=== PATIENT | female | born 1990 | race Caucasian/White ===

== ENCOUNTER → 2017-12-05 | Outpatient (CLI) | payer BC ==
[2017-12-05 18:52] LABS: FREE T4 (FREE THYROXINE) 1.28 ng/dL (0.78-2.19)
[2017-12-05 19:06] LABS: THYROID STIMULATING HORMONE 0.27 uIU/mL (0.47-4.68)
== END ==
LOC: OD 16:04
PROVIDERS: ATTEND Psychiatry & Neurology Psychiatry
DX: F33.1 Major depressive disorder, recurrent, moderate (principal); Z79.899 Other long term (current) drug therapy
CPT/HCPCS: 36415; 84439; 84443

== ENCOUNTER → 2019-01-02 | Outpatient (CLI) | payer BC ==
[2019-01-02 20:16] LABS: APPEARANCE,URINE CLEAR; BILIRUBIN,URINE NEGATIVE (NEGATIVE); COLOR,URINE STRAW; GLUCOSE, URINE NEGATIVE (NEGATIVE); KETONES,URINE NEGATIVE (NEGATIVE); LEUKOCYTE ESTERASE,URINE NEGATIVE (NEGATIVE); NITRITE,URINE NEGATIVE (NEGATIVE); PROTEIN,URINE NEGATIVE (NEGATIVE); URINE SPECIFIC GRAVITY 1.003; UROBILINOGEN,URINE NEGATIVE mg/dL (<2.0)
[2019-01-02 20:46] LABS: URINE AMPHETAMINES SCREEN NEGATIVE; URINE BARBITURATES SCREEN NEGATIVE; URINE BENZODIAZEPINES SCREEN NEGATIVE; URINE COCAINE SCREEN NEGATIVE; URINE MARIJUANA (THC) SCREEN NEGATIVE; URINE METHADONE SCREEN NEGATIVE; URINE PHENCYCLIDINE SCREEN NEGATIVE
--- NOTE | 2019-01-02 22:37 | Non Stress Test Report ---
Non Stress Test Datetime Report Generated by CPN: 01/02/2019 22:37 DEMOGRAPHIC EGA NST: 38.3 INDICATION Indication for Study: Other Indication for Study (NST) Other: LC MONITORING Monitor Explained: Monitor Explained; Test Explained; Patient Verbalized Understanding Time on Monitor: 01/02/2019 20:07 Time off Monitor: 01/02/2019 20:51 NST Duration: 44 NST INTERVENTIONS NST Interventions: None Physician Notified NST: Hernandez BABY A: [id number] Movement : Present Contraction Frequency : 1.5-4 FHR Baseline : 130 Accelerations : 15X15 Decelerations : None Variability : Moderate 6-25bpm NST Review: Meets Criteria for Reactive NST NST Review: Meets Criteria for Reactive NST NST Review and Verified By : Citlaly Morrow RN NST Results: Reactive NST REPORT Report Trigger: Send Report
== END ==
LOC: LC 19:34
PROVIDERS: ATTEND Student in an Organized Health Care Education/Training Program
PROC: 4A1HXCZ Monitoring of Products of Conception, Cardiac Rate, External Approach (ICD-10-PCS; principal; 2019-01-02)
DX: O47.1 False labor at or after 37 completed weeks of gestation (principal); Z3A.38 38 weeks gestation of pregnancy
CPT/HCPCS: 80307; 81005; 84112

== ENCOUNTER 2019-01-09 02:20 | Inpatient (IN) | payer BC ==
[2019-01-09] MEDS ORDERED: OXYTOCIN/NORMAL SALINE 20 UNIT/1,000 ML RTUINJ ONE (02:47)
[2019-01-09] MEDS ORDERED: LIDOCAINE 1% INJ-PF (10 MG/ML) 30 ML SDV ONE (02:47)
[2019-01-09] MEDS ORDERED: MISOPROSTOL 0.2 MG TABLET ONE (02:47)
[2019-01-09] MEDS ORDERED: RINGERS SOLUTION,LACTATED 1,000 ML IV PRN ×2 (02:57→10:53)
[2019-01-09 03:36] LABS: ABSOLUTE EOSINOPHILS # (AUTO) 0.1 10^3/uL (0.0-0.6); ABSOLUTE LYMPHOCYTES (AUTO) 2.2 10^3/uL (0.5-4.7); ABSOLUTE NEUT (AUTO) 8.9 10^3/uL (1.7-8.2); BASOPHILS % (AUTO) 0.3 % (0-2); EOSINOPHILS % (AUTO) 1.1 % (0-6); HEMATOCRIT 30.5 % (36.0-47.0); LYMPHOCYTES % (AUTO) 17.7 % (13-45); MEAN CORPUSCULAR HEMOGLOBIN 27.6 pg (27.0-33.4); MEAN CORPUSCULAR HGB CONC 32.9 g/dL (32.0-36.0); MEAN CORPUSCULAR VOLUME 84 fl (80-97); MONOCYTES % (AUTO) 7.9 % (3-13); PLATELET COUNT 178 10^3/uL (150-450); RED BLOOD COUNT 3.63 10^6/uL (3.72-5.28); RED CELL DISTRIBUTION WIDTH 14.5 % (11.5-14.0); TOTAL CELLS COUNTED % (AUTO) 100 %; WHITE BLOOD COUNT 12.2 10^3/uL (4.0-10.5)
[2019-01-09] MEDS ORDERED: EPHEDRINE SULFATE INJ 50 MG/1 ML AMPULE ONE (03:41)
[2019-01-09] MEDS ORDERED: FENTANYL/BUPIVACAINE/NS/PF 300 MCG/150 ML RTUINJ EPI ONE (03:42)
[2019-01-09] MEDS ORDERED: BUPIVACAINE HCL 0.25 % INJ/PF (2.5 MG/1 ML) 30 ML VIAL ONE (03:42)
--- NOTE | 2019-01-09 03:55 | Admission Physical ---
Datetime Report Generated by CPN: 01/09/2019 03:54 CURRENT ADMISSION Chief Complaint: Uterine Contractions Indication for Induction: Not Applicable Admit Impression : Term, Intrauterine ; Active Labor; Intact Membranes Admit Plan: Admit to Unit; Initiate Labor Protocol ALLERGIES Medication Allergies: No Medication Allergies: No Known Allergies (01/09/2019) Latex: No Latex Allergies OBSTETRICAL HISTORY EDC: 01/13/2019 00:00 : 2 Para: 1 Livin Gestational Diabetes: No Rh Sensitization: No Incompetent Cervix: No ISIAH: No Infertility: No ART Treatment: No Uterine Anomaly: No IUGR: No Hx Previous C/S: No Macrosomia: No Hx Loss/Stillborn: No PIH: No Hx : No Placenta Previa/Abruption: No Depression/PP Depression: No PTL/PROM: No Post Hemorrhage: No Current Procedures: Ultrasound; NST Obstetrical History Comments: G1 - 2011 baby boy, no complications G2 - current SEE RECORDS Alcohol: No Marijuana : No Cocaine: No Other Illicit Drugs: No Cigarettes: Never Smoker. [id number] MEDICAL HISTORY Diabetes: No Blood Transfusion: No Pulmonary Disease (Asthma, TB): No Breast Disease: No Hypertension: No Diamond Blender Surgery: No Heart Disease: No Hosp/Surgery: No Autoimmune Disorder: No Anesthetic Complications: No Kidney Disease: No Abnormal Pap Smear: No Neuro/Epilepsy: No Psychiatric Disorders: No Other Medical Diseases: No Hepatitis/Liver Disease: No Significant Family History: No Varicosities/Phlebitis: No Trauma/Violence : No Thyroid Dysfunction: No INFECTIOUS HISTORY Gonorrhea: No Genital Herpes: No Chlamydia: No Tuberculosis: No Syphilis: No Hepatitis: No HIV/AIDS Exposure: No Rash or Viral Illness: No HPV: No PHYSICAL EXAM General: Normal HEENT: Normal Neurologic: Normal Thyroid: Deferred Heart: Normal Lungs: Normal Breast: Deferred Back: Normal Abdomen: Normal Genitourinary Exam: Normal Extremities: Normal DTRs: Normal Pelvic Type: Adequate Vital Signs: Reviewed VAGINAL EXAM Dilatation: 4 Effacement: 80 Station: -1 Contraction Comments: Q2-3 MEMBRANES Membranes: Intact FETUS A EGA: 39.3 Monitoring: External US FHR- Baseline: 145 Variability: Moderate 6-25bpm Accelerations: 15X15 Decelerations: None FHR Category: Category I Presentation: Vertex Admit Comment: 28yo at 39+3ega presents for regular uterine ctx. Rubella NI, transfer at 16wks. She is in active labor. GBS negative. Anticpate . Admit for labor. epidural upon patient request. PLANS FOR LABOR AND DELIVERY Labor and Delivery: None Pain Management: Epidural Feeding Preference: Breast Benefit of Breast Feed Discussed: Yes Circumcision: N/A INFORMED CONSENT Informed Consent Obtained: Vaginal Delivery; Risks, Benefits and Alternatives Discussed Signature: with User ID: [email or web address]
[2019-01-09 05:21] LABS: APPEARANCE,URINE CLEAR; BILIRUBIN,URINE NEGATIVE (NEGATIVE); COLOR,URINE STRAW; GLUCOSE, URINE NEGATIVE (NEGATIVE); KETONES,URINE NEGATIVE (NEGATIVE); LEUKOCYTE ESTERASE,URINE NEGATIVE (NEGATIVE); NITRITE,URINE NEGATIVE (NEGATIVE); PROTEIN,URINE NEGATIVE (NEGATIVE); URINE SPECIFIC GRAVITY 1.008; UROBILINOGEN,URINE NEGATIVE mg/dL (<2.0)
[2019-01-09 05:41] LABS: URINE AMPHETAMINES SCREEN NEGATIVE; URINE BARBITURATES SCREEN NEGATIVE; URINE BENZODIAZEPINES SCREEN NEGATIVE; URINE COCAINE SCREEN NEGATIVE; URINE MARIJUANA (THC) SCREEN NEGATIVE; URINE METHADONE SCREEN NEGATIVE; URINE PHENCYCLIDINE SCREEN NEGATIVE
[2019-01-09] MEDS ORDERED: OXYTOCIN/NORMAL SALINE 20 UNIT/1,000 ML RTUINJ IV PRN ×2 (10:53→13:15)
[2019-01-09] MEDS ORDERED: HYDROXYZINE PAMOATE 50 MG CAPSULE ONE (11:24)
--- NOTE | 2019-01-09 12:34 | RADIOLOGY REPORT (SQ) ---
EXAM DESCRIPTION: CHEST SINGLE VIEW COMPLETED DATE/TIME: 01/09/2019 12:24 pm REASON FOR STUDY: assess for congestion COMPARISON: None. EXAM PARAMETERS: NUMBER OF VIEWS: One view. TECHNIQUE: Single frontal radiographic view of the chest acquired. RADIATION DOSE: NA LIMITATIONS: None. FINDINGS: LUNGS AND PLEURA: No opacities, masses or pneumothorax. No pleural effusion. MEDIASTINUM AND HILAR STRUCTURES: No masses. Contour normal. HEART AND VASCULAR STRUCTURES: Heart normal in size. Normal vasculature. BONES: No acute findings. Mild spinal curvature which may be due to positioning versus underlying sc oliosis. HARDWARE: None in the chest. OTHER: No other significant finding. IMPRESSION: NO ACUTE RADIOGRAPHIC FINDING IN THE CHEST. TECHNICAL DOCUMENTATION: JOB ID: [id number] [employer]- All Rights Reserved Reading location - IP/workstation name: [email or web address]
[2019-01-09 12:46] LABS: ABSOLUTE LYMPHOCYTES (AUTO) 1.2 10^3/uL (0.5-4.7); ABSOLUTE MONOCYTES (AUTO) 0.5 10^3/uL (0.1-1.4); ABSOLUTE NEUT (AUTO) 9.8 10^3/uL (1.7-8.2); BASOPHILS % (AUTO) 0.2 % (0-2); EOSINOPHILS % (AUTO) 0.1 % (0-6); HEMATOCRIT 28.5 % (36.0-47.0); HEMOGLOBIN 9.3 g/dL (12.0-15.5); LYMPHOCYTES % (AUTO) 10.5 % (13-45); MEAN CORPUSCULAR HEMOGLOBIN 27.5 pg (27.0-33.4); MEAN CORPUSCULAR HGB CONC 32.7 g/dL (32.0-36.0); MEAN CORPUSCULAR VOLUME 84 fl (80-97); MONOCYTES % (AUTO) 4.5 % (3-13); PLATELET COUNT 146 10^3/uL (150-450); RED BLOOD COUNT 3.39 10^6/uL (3.72-5.28); SEGMENTED NEUTROPHILS % (AUTO) 84.7 % (42-78); TOTAL CELLS COUNTED % (AUTO) 100 %; WHITE BLOOD COUNT 11.6 10^3/uL (4.0-10.5)
[2019-01-09 13:04] LABS: ALBUMIN 2.9 g/dL (3.5-5.0); ALKALINE PHOSPHATASE 203 U/L (38-126); ANION GAP 8 (5-19); ASPARTATE AMINO TRANSFERASE 25 U/L (14-36); BILIRUBIN,DIRECT 0.1 mg/dL (0.0-0.4); BILIRUBIN,TOTAL 0.3 mg/dL (0.2-1.3); BLOOD UREA NITROGEN 5 mg/dL (7-20); CALCIUM 8.3 mg/dL (8.4-10.2); CARBON DIOXIDE 21 mmol/L (22-30); CHLORIDE 105 mmol/L (98-107); GLUCOSE 86 mg/dL (75-110); TOTAL PROTEIN 5.5 g/dL (6.3-8.2)
[2019-01-09 13:06] LABS: POTASSIUM 3.5 mmol/L (3.6-5.0)
[2019-01-09] MEDS ORDERED: ZOLPIDEM TARTRATE 5 MG TABLET PO PRN (13:15)
[2019-01-09] MEDS ORDERED: DIPH/PERTUSS(ACELL)/TETANUS VAC/PF 0.5 ML SYR (>=10YO) IM PRN (13:15)
[2019-01-09] MEDS ORDERED: ACETAMINOPHEN WITH CODEINE #3 TABLET PO PRN (13:15)
[2019-01-09] MEDS ORDERED: GLYCERIN/WITCH HAZEL LEAF 1 EACH MED..WIPE TP PRN (13:15)
[2019-01-09] MEDS ORDERED: DIBUCAINE 1% OINTMENT 56 GM TP PRN (13:15)
[2019-01-09] MEDS ORDERED: PROMETHAZINE HCL 25 MG TABLET PO PRN (13:15)
[2019-01-09] MEDS ORDERED: MAGNESIUM HYDROXIDE SUSP 30 ML UDCUP PO PRN (13:15)
[2019-01-09] MEDS ORDERED: NA PHOS,M-B/NA PHOS,DI-BA (ADULT) 133 ML ENEMA PR PRN (13:15)
[2019-01-09] MEDS ORDERED: ACETAMINOPHEN 650 MG SUPP.RECT PR PRN (13:15)
[2019-01-09] MEDS ORDERED: MEASLES,MUMPS&RUBELLA VACC/PF 0.5 ML VIAL SUBCUT PRN (13:15)
[2019-01-09] MEDS ORDERED: BENZOCAINE/MENTHOL AEROSOL SPRAY 56 ML TOP PRN (13:15)
[2019-01-09] MEDS ORDERED: PROMETHAZINE HCL 25 MG SUPP.RECT PR PRN (13:15)
[2019-01-09] MEDS ORDERED: DIPHENHYDRAMINE HCL 25 MG CAPSULE PO PRN (13:15)
[2019-01-09] MEDS ORDERED: PROMETHAZINE HCL INJ 25 MG/1 ML VIAL IV PRN (13:15)
[2019-01-09] MEDS ORDERED: PSEUDOEPHEDRINE HCL 30 MG TABLET PO PRN (13:15)
[2019-01-09 14:22] LABS: FREE T3 5.26 pg/mL (2.77-5.27); FREE T4 (FREE THYROXINE) 1.03 ng/dL (0.78-2.19)
--- NOTE | 2019-01-09 15:26 | PDOC CONSULTATION ---
Consultation Consult Date: 01/09/19 Attending physician:: steve Provider Consulted: FERNANDO LABOY History of Present Illness Admission Date/PCP: 01/09/19 02:47 LINDA ANAYA MD Patient complains of: tachycardia History of Present Illness: REUBEN RÍOS is a 28 year old healthy female with no significant past medical history who was admitted and being manage to labor and delivery. Patient was given an epidural earlier today. She reportedly became hypotensive after this hence was given multiple doses of ephedrine. Last dose of ephedrine was given close to 5 AM. She reportedly developed tachycardia. Per RN, she went up to the 140s but went up to as high as 240s. Patient is not on threat monitoring analyst hence no strip was obtained. Cardiac rhythm during the episode is also uncertain. Patient reportedly complained of transient lightheadedness during the episode. Otherwise she denied any chest pain or shortness of breath. Upon encounter, patient's blood pressure is normal at 110/70. Heart rate is 98. EKG pain this morning showed sinus rhythm with a heart rate of 86. She appears comfortable and denies any lightheadedness, chest pain or shortness of breath at the moment. She is currently saturating well at 100% on room air. Social History Smoking Status: Never Smoker Family History Family History: Reviewed & Not Pertinent Parental Family History Reviewed: Yes - no premature CAD Children Family History Reviewed: No Sibling(s) Family History Reviewed.: No Medication/Allergy Home Medications: Fluoxetine HCl [Prozac] 10 mg PO DAILY 01/09/19 Omeprazole 20 mg PO DAILY 01/09/19 Vits96/Iron Fum/Folic [ Tablet] 1 tab PO DAILY 01/09/19 Allergies/Adverse Reactions: No Known Allergies Allergy (Verified 01/09/19 03:39) Review of Systems All systems: reviewed and no additional remarkable complaints except as stated - As mentioned in HPI Physical Exam Vital Signs: Intake & Output 01/08/19 01/09/19 01/10/19 06:59 06:59 06:59 Weight 189 lb 2.506 oz General appearance: PRESENT: no acute distress, well-developed, well-nourished Head exam: PRESENT: atraumatic, normocephalic Eye exam: PRESENT: conjunctiva pink, EOMI, PERRLA. ABSENT: scleral icterus Ear exam: PRESENT: normal external ear exam Mouth exam: PRESENT: moist, tongue midline Neck exam: ABSENT: carotid bruit, JVD, lymphadenopathy, thyromegaly Respiratory exam: PRESENT: clear to auscultation sue. ABSENT: rales, rhonchi, wheezes Cardiovascular exam: PRESENT: RRR. ABSENT: diastolic murmur, rubs, systolic murmur Pulses: PRESENT: normal dorsalis pedis pul GI/Abdominal exam: PRESENT: normal bowel sounds, soft, other - gravid uterus. ABSENT: distended, guarding, mass, organolmegaly, rebound, tenderness Rectal exam: PRESENT: deferred Neurological exam: PRESENT: alert, awake, oriented to person, oriented to place, oriented to time, oriented to situation, CN II-XII grossly intact. ABSENT: motor sensory deficit Results Laboratory Results: 01/09/19 12:21 01/09/19 12:21 01/09/19 01/09/19 01/09/19 02:29 03:08 03:08 WBC 12.2 H RBC 3.63 L Hgb 10.0 L Hct 30.5 L MCV 84 MCH 27.6 MCHC 32.9 RDW 14.5 H Plt Count 178 Seg Neutrophils % 73.0 Lymphocytes % 17.7 Monocytes % 7.9 Eosinophils % 1.1 Basophils % 0.3 Absolute Neutrophils 8.9 H Absolute Lymphocytes 2.2 Absolute Monocytes 1.0 Absolute Eosinophils 0.1 Absolute Basophils 0.0 Sodium Potassium Chloride Carbon Dioxide Anion Gap BUN Creatinine Est GFR ( Amer) Est GFR (Non-Af Amer) Glucose Calcium Total Bilirubin AST Alkaline Phosphatase Total Protein Albumin Urine Color STRAW Urine Appearance CLEAR Urine pH 7.0 Ur Specific [place] 1.008 Urine Protein NEGATIVE Urine Glucose (UA) NEGATIVE Urine Ketones NEGATIVE Urine Blood NEGATIVE Urine Nitrite NEGATIVE Ur Leukocyte Esterase NEGATIVE Blood Type A POSITIVE Antibody Screen NEGATIVE 01/09/19 01/09/19 12:21 12:21 WBC 11.6 H RBC 3.39 L Hgb 9.3 L Hct 28.5 L MCV 84 MCH 27.5 MCHC 32.7 RDW 15.0 H Plt Count 146 L Seg Neutrophils % 84.7 H Lymphocytes % 10.5 L Monocytes % 4.5 Eosinophils % 0.1 Basophils % 0.2 Absolute Neutrophils 9.8 H Absolute Lymphocytes 1.2 Absolute Monocytes 0.5 Absolute Eosinophils 0.0 Absolute Basophils 0.0 Sodium 134.2 L Potassium 3.5 L Chloride 105 Carbon Dioxide 21 L Anion Gap 8 BUN 5 L Creatinine 0.46 L Est GFR ( Amer) > 60 Est GFR (Non-Af Amer) > 60 Glucose 86 Calcium 8.3 L Total Bilirubin 0.3 AST 25 Alkaline Phosphatase 203 H Total Protein 5.5 L Albumin 2.9 L Urine Color Urine Appearance Urine pH Ur Specific [place] Urine Protein Urine Glucose (UA) Urine Ketones Urine Blood Urine Nitrite Ur Leukocyte Esterase Blood Type Antibody Screen Impressions: Chest X-Ray 01/09/19 11:54 IMPRESSION: NO ACUTE RADIOGRAPHIC FINDING IN THE CHEST. Assessment and Plan - Diagnosis (1) Tachycardia Is this a current diagnosis for this admission?: Yes Plan: Possibly related to ephedrine. Patient likely developed hypotension after epidural anesthesia. She did get multiple doses of ephedrine after that. Cardiac reason during the episode is uncertain. Will place patient on monitor car operator. Will check electrolytes particularly potassium and magnesium. Will also check patient's thyroid panel. She denies shortness of breath and she is saturating well on room air. Will consider pursuing a VQ scan if she has recurrence of persistence of tachycardia. (2) Hypotension Is this a current diagnosis for this admission?: Yes Plan: Resolved. Likely related to epidural anesthesia. (3) Active labor at term Is this a current diagnosis for this admission?: Yes Plan: Currently being managed by primary service. - Time Time Spent with patient: 25-34 minutes
[2019-01-09] MEDS: POTASSI CL 20 MEQ/50 ML RIDER 20 MEQ/50 ML RTUPB IV SCH ×2 (16:52→19:42)
[2019-01-09] MEDS: MAGNESIUM SULFATE/D5W 1 GM/100 ML RTUPB IV SCH ×2 (16:52→18:17)
[2019-01-09] MEDS: ACETAMINOPHEN WITH CODEINE #3 TABLET PO PRN (16:52)
[2019-01-09] MEDS: IBUPROFEN 800 MG TABLET PO SCH ×2 (17:01→22:04)
[2019-01-09] MEDS: FERROUS SULFATE 325 MG TABLET PO SCH (18:17)
[2019-01-09] MEDS: DOCUSATE SODIUM 100 MG CAPSULE PO SCH (18:17)
[2019-01-09 20:40] LABS: POTASSIUM 4.2 mmol/L (3.6-5.0)
[2019-01-09] MEDS: FAMOTIDINE 20 MG TABLET PO SCH (22:04)
[2019-01-10] MEDS: IBUPROFEN 800 MG TABLET PO SCH ×3 (05:30→21:44)
[2019-01-10 06:42] LABS: HEMOGLOBIN 8.2 g/dL (12.0-15.5); MEAN CORPUSCULAR HEMOGLOBIN 27.7 pg (27.0-33.4); MEAN CORPUSCULAR HGB CONC 32.8 g/dL (32.0-36.0); MEAN CORPUSCULAR VOLUME 84 fl (80-97); PLATELET COUNT 123 10^3/uL (150-450); RED BLOOD COUNT 2.96 10^6/uL (3.72-5.28); RED CELL DISTRIBUTION WIDTH 14.8 % (11.5-14.0); WHITE BLOOD COUNT 13.6 10^3/uL (4.0-10.5)
[2019-01-10] MEDS: PRENATAL VITAMIN W DHA CAPSULE PO SCH (09:29)
[2019-01-10] MEDS: SENNOSIDES/DOCUSATE 8.6-50 MG 1 EACH TABLET PO SCH (09:29)
[2019-01-10] MEDS: FAMOTIDINE 20 MG TABLET PO SCH ×2 (09:29→21:45)
[2019-01-10] MEDS: DOCUSATE SODIUM 100 MG CAPSULE PO SCH ×2 (09:29→17:49)
[2019-01-10] MEDS: FERROUS SULFATE 325 MG TABLET PO SCH ×2 (09:29→17:49)
--- NOTE | 2019-01-10 10:05 | PDOC PROGRESS REPORT ---
Subjective-OB Progress Note for:: 01/10/19 - PP Day #1, s/p PPH, also had issues w/ being Hypotensive after her epidural yesterday. See note by Hospitalist. Pt doing well this morning, no c/o dizziness, denies problems w/ ambulation or voiding, A+, rubella non-immune Physical Exam (OB) Vital Signs: Temp Pulse Resp BP Pulse Ox 97.5 F 65 16 122/71 100 01/10/19 07:26 01/10/19 07:26 01/10/19 07:26 01/10/19 07:26 01/10/19 07:26 Intake & Output 01/09/19 01/10/19 01/11/19 06:59 06:59 06:59 Intake Total 150 Balance 150 Weight 85.8 kg - General General Appearance: Appears well, Alert - PIH/Pre-Eclampsia DTR's: 2 + Clonus: Negative Headache: Absent Epigastric Pain: No Visual Changes: No - Lochia Lochia Amount: Small 10-25 ml Lochia Color: Rubra/Red - Abdomen Description: Soft Hernia Present: No Fundal Description: Firm, Midline Describe if Not Midline: slightly to the right Fundal Height: u/u - u/2 - Respiratory Respiratory Status: No respiratory distress - Abdominal Inspection: Normal Distension: No distension - Genitourinary Genitourinary Note: voiding - Extremities Upper extremity: Normal inspection Lower extremities: Normal inspection - Neurological Cognition: Normal Orientation: AAOx4 - Psychological Associated symptoms: Normal affect, Normal mood - Skin Skin Temperature: Warm Skin Moisture: Dry Objective-Diagnostic Laboratory: 01/10/19 06:22 01/09/19 20:16 01/09/19 01/09/19 01/09/19 11:21 12:21 12:21 WBC 11.6 H RBC 3.39 L Hgb 9.3 L Hct 28.5 L MCV 84 MCH 27.5 MCHC 32.7 RDW 15.0 H Plt Count 146 L Seg Neutrophils % 84.7 H Lymphocytes % 10.5 L Monocytes % 4.5 Eosinophils % 0.1 Basophils % 0.2 Absolute Neutrophils 9.8 H Absolute Lymphocytes 1.2 Absolute Monocytes 0.5 Absolute Eosinophils 0.0 Absolute Basophils 0.0 Sodium 134.2 L Potassium 3.5 L Chloride 105 Carbon Dioxide 21 L Anion Gap 8 BUN 5 L Creatinine 0.46 L Est GFR ( Amer) > 60 Est GFR (Non-Af Amer) > 60 Glucose 86 Calcium 8.3 L Magnesium Total Bilirubin 0.3 AST 25 Alkaline Phosphatase 203 H Total Protein 5.5 L Albumin 2.9 L TSH Free T4 1.03 Free T3 pg/mL 5.26 01/09/19 01/09/19 01/09/19 12:21 12:21 20:16 WBC RBC Hgb Hct MCV MCH MCHC RDW Plt Count Seg Neutrophils % Lymphocytes % Monocytes % Eosinophils % Basophils % Absolute Neutrophils Absolute Lymphocytes Absolute Monocytes Absolute Eosinophils Absolute Basophils Sodium Potassium 4.2 Chloride Carbon Dioxide Anion Gap BUN Creatinine Est GFR ( Amer) Est GFR (Non-Af Amer) Glucose Calcium Magnesium 1.4 L 2.0 Total Bilirubin AST Alkaline Phosphatase Total Protein Albumin TSH 1.07 Free T4 Free T3 pg/mL 01/10/19 06:22 WBC 13.6 H RBC 2.96 L Hgb 8.2 L Hct 25.0 L MCV 84 MCH 27.7 MCHC 32.8 RDW 14.8 H Plt Count 123 L Seg Neutrophils % Lymphocytes % Monocytes % Eosinophils % Basophils % Absolute Neutrophils Absolute Lymphocytes Absolute Monocytes Absolute Eosinophils Absolute Basophils Sodium Potassium Chloride Carbon Dioxide Anion Gap BUN Creatinine Est GFR ( Amer) Est GFR (Non-Af Amer) Glucose Calcium Magnesium Total Bilirubin AST Alkaline Phosphatase Total Protein Albumin TSH Free T4 Free T3 pg/mL Assessment and Plan(PN) - Assessment and Plan (1) PPH ( hemorrhage) Qualifiers: hemorrhage type: other immediate Qualified Code(s): O72.1 - Other immediate hemorrhage Is this a current diagnosis for this admission?: Yes (2) Acute blood loss anemia Is this a current diagnosis for this admission?: Yes (3) Active labor at term Is this a current diagnosis for this admission?: Yes (4) Hypotension Qualifiers: Hypotension type: hypotension due to drug Qualified Code(s): I95.2 - Hypotension due to drugs Is this a current diagnosis for this admission?: Yes (5) Tachycardia Is this a current diagnosis for this admission?: Yes - Time Spent with Patient Time with patient: Less than 15 minutes Medications reviewed and adjusted accordingly: Yes - Disposition Anticipated Discharge: Home Within: within 24 hours
[2019-01-10] MEDS: ACETAMINOPHEN WITH CODEINE #3 TABLET PO PRN (14:04)
--- NOTE | 2019-01-10 15:08 | Delivery Summary ---
Del Sum A-C Datetime Report Generated by CPN: 01/10/2019 15:07 DELIVERY PERSONNEL DELIVERY PERSONNEL: [id number] Delivery Doctor:: Renay Ambriz CNM Nurse Chief Sales Officer Certified:: Renay Ambriz CNM Labor and Delivery Nurse:: JAMAR Martinez Nursery Nurse:: Alexandra Velez RN Accounts Receivable Manager/DISTANCE EDUCATION DIRECTOR: Kellie Guzmán, SUPERVISOR KNITTING Additional Personnel: : Kayce Coon RN MATERNAL INFORMATION Delivery Anesthesia: Epidural Medications After Delivery: Pitocin Drip 20 Units/1000ml NSS; Cytotec 800mcg Per Rectum/Vagina Estimated Blood Loss (ml): 300 Delivery QBL: 1000 Other Maternal Complications: Episodic maternal tachycardia Complication Details: Maternal Tachycardia Provider Comments: live female in vertex OA to PEEWEE at 1243 under epidural anesthesia. Light meconium fluid. Loose nuchal cord x1 reduced. Spontaneous respirations and cry. 3-vessel cord. Apgars 8-8. Cord clamped x2, after 2 min delay, then cut by female friend of patient. Placenta, membranes, and cord expelled at 1249, [place], w trailing membranes. Small perineal laceration w hemostasis, no repair. Patient's pulse 114 after delivery. Uterus explored. FF@ U-3. Patient tolerated procedure well. RN from [facility] present to place leads for telimetry. LABOR SUMMARY EDC: 01/13/2019 00:00 No. Babies in Womb: 1 Attempted: No Labor Anesthesia: Epidural LABOR INFORMATION Reason for Induction: Not Applicable Onset of Labor: 01/08/2019 21:30 Complete Dilatation: 01/09/2019 12:30 Oxytocin: Augmentation Group B Beta Strep: negative Steroids Given: None Reason Steroids Not Administered: Not Applicable MEMBRANES Membranes Rupture Method: Artificial Rupture of Membranes: 01/09/2019 08:40 Length of Rupture (hr): 4.05 Amniotic Fluid Color: Light Meconium Amniotic Fluid Amount: Moderate Amniotic Fluid Amount: None Amniotic Fluid Odor: Normal STAGES OF LABOR Stage 1 hr: 15 Stage 1 min: 0 Stage 2 hr: 0 Stage 2 min: 13 Stage 3 hr: 0 Stage 3 min: 6 Total Time in Labor hr: 15 Total Time in Labor min: 19 VAGINAL DELIVERY Laceration #1: Perineal Laceration Extension #1: N/A Laceration Repair: Not Applicable Laceration Repair Note: Hemostasis w small perineal laceration Sponge Count Correct: N/A Sharps Count Correct: Yes BABY A INFORMATION Delivery Date/Time: 01/09/2019 12:43 Method of Delivery: Vaginal Born in Route : No : N/A Forceps: N/A Vacuum Extraction: N/A Shoulder Dystocia : No PRESENTATION/POSITION BABY A Presentation: Cephalic Presentation: Cephalic PLACENTA INFORMATION BABY A Placenta Delivery Time : 01/09/2019 12:49 Placenta Method of Delivery: Spontaneous Placenta Status: Delivered SCORES BABY A Heart Rate 1 min: >100 bpm Resp Effort 1 min: Good Cry Reflex Irritability 1 min: Cough or Sneeze or Pulls Away Muscle Tone 1 min: Active Motion Color 1 min: Blue/Pale SCORE 1 MIN: 8 Heart Rate 5 min: >100 bpm Resp Effort 5 min: Good Cry Reflex Irritability 5 min: Cough or Sneeze or Pulls Away Muscle Tone 5 min: Active Motion Color 5 min: Blue/Pale SCORE 5 MIN: 8 Heart Rate 10 min: >100 bpm Resp Effort 10 min: Good Cry Reflex Irritability 10 min: Cough or Sneeze or Pulls Away Muscle Tone 10 min: Active Motion Color 10 min: Body [place], Extremities Blue SCORE 10 MIN: 9 INFANT INFORMATION BABY A Gestational Age at Delivery: 39.0 Gestational Status: Full Term- 39- 40.6 Weeks Outcome : Liveborn Condition : Stable Infant Sex: Female IDENTIFICATION BABY A Verification Date/Time: 01/09/2019 13:00 ID Band Number: [id number] Mother's Name Verified: Yes Infant RN Verifying Infant: Aleksandray Additional Verifying Personnel: [email or web address] WEIGHT/LENGTH BABY A Infant Birthweight (gm): 3359 Infant Weight (lb): 7 Weight (oz): 6 Length (in): 19.75 Infant Length (cm): 50.17 CORD INFORMATION BABY A No. Cord Vessels: 3 Nuchal Cord : Around Neck x1, Loose Cord Blood Taken: Yes-For Storage (Mom's Blood type +) Suction: Mouth; Nose ASSESSMENT BABY A Complications: Meconium Complications- Other: thin mec Physical Findings at Delivery: Within Normal Limits Infant Respirations: Appears Normal Skin to Skin: Yes Skin to Skin: Yes Cleaner Wall/ALS Called : No Infant Care By: La Velez RN Transferred To: Remains with Mother SIGNATURES Assignment: Angel Prince MD Signature: with User ID: Inder : with User ID: Inder : I personally evaluated and examined the patient in conjunction with the MLP and agree with the assessment, treatment plan and disposition. : I personally evaluated and examined the patient in conjunction with the MLP and agree with the assessment, treatment plan and disposition.
--- NOTE | 2019-01-10 17:05 | PDOC PROGRESS REPORT ---
Subjective Progress Note for:: 01/10/19 Subjective:: No acute event overnight. No recurrence of tachycardia. She is comfortable and is saturating well on room air. She has ambulated the hallways with no acute issues or desaturation. Denies shortness of breath or chest pain. Reason For Visit: Physical Exam Vital Signs: Temp Pulse Resp BP Pulse Ox 97.9 F 71 18 113/70 98 01/10/19 15:04 01/10/19 15:04 01/10/19 15:04 01/10/19 15:04 01/10/19 15:04 Intake & Output 01/09/19 01/10/19 01/11/19 06:59 06:59 06:59 Intake Total 150 300 Balance 150 300 Weight 189 lb 2.506 oz General appearance: PRESENT: no acute distress, well-developed, well-nourished Head exam: PRESENT: atraumatic, normocephalic Eye exam: PRESENT: conjunctiva pink, EOMI, PERRLA. ABSENT: scleral icterus Ear exam: PRESENT: normal external ear exam Mouth exam: PRESENT: moist, tongue midline Neck exam: ABSENT: carotid bruit, JVD, lymphadenopathy, thyromegaly Respiratory exam: PRESENT: clear to auscultation sue. ABSENT: rales, rhonchi, wheezes Cardiovascular exam: PRESENT: RRR. ABSENT: diastolic murmur, rubs, systolic murmur Pulses: PRESENT: normal dorsalis pedis pul GI/Abdominal exam: PRESENT: normal bowel sounds, soft. ABSENT: distended, guard ing, mass, organolmegaly, rebound, tenderness Rectal exam: PRESENT: deferred Extremities exam: PRESENT: full ROM. ABSENT: calf tenderness, clubbing, pedal edema Neurological exam: PRESENT: alert, awake, oriented to person, oriented to place, oriented to time, oriented to situation, CN II-XII grossly intact. ABSENT: motor sensory deficit Results Laboratory Results: 01/10/19 06:22 01/09/19 20:16 01/09/19 01/10/19 20:16 06:22 WBC 13.6 H RBC 2.96 L Hgb 8.2 L Hct 25.0 L MCV 84 MCH 27.7 MCHC 32.8 RDW 14.8 H Plt Count 123 L Potassium 4.2 Magnesium 2.0 Impressions: Chest X-Ray 01/09/19 11:54 IMPRESSION: NO ACUTE RADIOGRAPHIC FINDING IN THE CHEST. Assessment and Plan - Diagnosis (1) Tachycardia Is this a current diagnosis for this admission?: Yes Plan: Resolved. Likely medication-related with both hypomagnesemia and hypokalemia possibly contributory to risk of tachyarrthymia. No recurrence of tachycardia overnight. (2) Hypotension Qualifiers: Hypotension type: hypotension due to drug Qualified Code(s): I95.2 - Hypotension due to drugs Is this a current diagnosis for this admission?: Yes Plan: Resolved. Likely related to epidural anesthesia. (3) Hypokalemia Is this a current diagnosis for this admission?: Yes Plan: Repleted. (4) Hypomagnesemia Is this a current diagnosis for this admission?: Yes Plan: Repleted. - Time Time Spent with patient: 25-34 minutes
[2019-01-11] MEDS: IBUPROFEN 800 MG TABLET PO SCH (06:01)
[2019-01-11] MEDS: FERROUS SULFATE 325 MG TABLET PO SCH (10:23)
[2019-01-11] MEDS: PRENATAL VITAMIN W DHA CAPSULE PO SCH (10:23)
[2019-01-11] MEDS: DOCUSATE SODIUM 100 MG CAPSULE PO SCH (10:24)
[2019-01-11] MEDS: FAMOTIDINE 20 MG TABLET PO SCH (10:24)
[2019-01-11] MEDS: SENNOSIDES/DOCUSATE 8.6-50 MG 1 EACH TABLET PO SCH (10:25)
--- NOTE | 2019-01-11 10:30 | EKG REPORT ---
SEVERITY:- NORMAL ECG - SINUS RHYTHM : Confirmed by: Ammy Freedman 11-Jan-2019 10:29:27
--- NOTE | 2019-01-11 10:37 | PDOC DISCHARGE SUMMARY ---
Final Diagnosis Discharge Date: 01/11/19 - PP Day #2, doing well, no compaints, , A+ Rubella Non-immune, PPH this delivery - Final Diagnosis (1) PPH ( hemorrhage) Is this a current diagnosis for this admission?: Yes (2) Acute blood loss anemia Is this a current diagnosis for this admission?: Yes (3) Active labor at term Is this a current diagnosis for this admission?: Yes (4) Hypotension Is this a current diagnosis for this admission?: Yes (5) Tachycardia Is this a current diagnosis for this admission?: Yes Discharge Data - Discharge Medication Prescriptions: Ferrous Sulfate [Feosol 325 mg Tablet] 325 mg PO DAILY #30 tablet Ibuprofen [Motrin 800 mg Tablet] 800 mg PO Q8 #60 tablet Home Medications: Fluoxetine HCl [Prozac] 10 mg PO DAILY 01/09/19 Omeprazole 20 mg PO DAILY 01/09/19 Vits96/Iron Fum/Folic [ Tablet] 1 tab PO DAILY 01/09/19 Ferrous Sulfate [Feosol 325 mg Tablet] 325 mg PO DAILY #30 tablet 01/11/19 Ibuprofen [Motrin 800 mg Tablet] 800 mg PO Q8 #60 tablet 01/11/19 Reason(s) for Admission: Onset of Labor Intrapartum Procedure(s): Spontaneous Vaginal Delivery Complication(s): Hemorrhage-Uterine Atony - Diagnosis Test Laboratory: Temp Pulse Resp BP Pulse Ox 97.6 F 79 18 114/71 99 01/11/19 07:57 01/11/19 07:57 01/11/19 07:57 01/11/19 07:57 01/11/19 07:57 01/09/19 01/09/19 01/09/19 02:29 03:08 12:21 RBC 3.63 L 3.39 L Hgb 10.0 L 9.3 L Hct 30.5 L 28.5 L Urine Opiates Screen NEGATIVE 01/10/19 06:22 RBC 2.96 L Hgb 8.2 L Hct 25.0 L Urine Opiates Screen - Discharge information/Instructions Discharge Activity: Activity As Tolerated, No Lifting Over 10 Pounds, Pelvic Rest Discharge Diet: As Tolerated Disposition: HOME, SELF-CARE Follow up with: [facility] in: 4, Weeks
[2019-01-11] MEDS: ACETAMINOPHEN WITH CODEINE #3 TABLET PO PRN (12:00)
[2019-01-11 13:29] VITALS: BP 114/71
== END 2019-01-11 14:40 | disposition home or self-care (01) | DRG 806 ==
LOC: LC 02:20 → LR 02:47 → 2S 15:50
PROVIDERS: ADMIT Student in an Organized Health Care Education/Training Program; ATTEND Student in an Organized Health Care Education/Training Program
PROC: 10E0XZZ Delivery of Products of Conception, External Approach (ICD-10-PCS; principal; 2019-01-09)
PROC: 10907ZC Drainage of Amniotic Fluid, Therapeutic from Products of Conception, Via Natural or Artificial Opening (ICD-10-PCS; 2019-01-09)
DX: O72.1 Other immediate postpartum hemorrhage (principal); D62 Acute posthemorrhagic anemia; Z37.0 Single live birth; O69.81X0 Labor and delivery complicated by cord around neck, without compression, not applicable or unspecified; I95.2 Hypotension due to drugs; T41.3X5A Adverse effect of local anesthetics, initial encounter; O90.81 Anemia of the puerperium; E83.42 Hypomagnesemia; E87.6 Hypokalemia; Z3A.39 39 weeks gestation of pregnancy
CPT/HCPCS: 36415; 71045; 80053; 80307; 81005; 83735; 84132; 84439; 84443; 84481; 85025; 85027; 86592; 86850; 86900; 86901; 88307; 93005; 93010; 94760; J2590; J3010; J3475; J3480; J3490

== ENCOUNTER 2019-01-12 19:24 | Emergency (ER) | payer BC, MEDICAID ==
[2019-01-12] MEDS ORDERED: NORMAL SALINE 1000 ML 1,000 ML IV ONE (21:07)
[2019-01-12] MEDS ORDERED: ACETAMINOPHEN 325 MG TABLET PO ONE (21:17)
[2019-01-12 21:23] LABS: ALBUMIN 3.7 g/dL (3.5-5.0); ALKALINE PHOSPHATASE 171 U/L (38-126); ANION GAP 10 (5-19); ASPARTATE AMINO TRANSFERASE 41 U/L (14-36); BILIRUBIN,DIRECT 0.2 mg/dL (0.0-0.4); BILIRUBIN,TOTAL 0.4 mg/dL (0.2-1.3); BLOOD UREA NITROGEN 8 mg/dL (7-20); CALCIUM 9.2 mg/dL (8.4-10.2); CARBON DIOXIDE 25 mmol/L (22-30); CHLORIDE 99 mmol/L (98-107); GLUCOSE 99 mg/dL (75-110); POTASSIUM 3.7 mmol/L (3.6-5.0); TOTAL PROTEIN 7.2 g/dL (6.3-8.2)
[2019-01-12 21:27] LABS: ABSOLUTE EOSINOPHILS # (AUTO) 0.2 10^3/uL (0.0-0.6); ABSOLUTE LYMPHOCYTES (AUTO) 0.8 10^3/uL (0.5-4.7); ABSOLUTE MONOCYTES (AUTO) 0.6 10^3/uL (0.1-1.4); ABSOLUTE NEUT (AUTO) 10.8 10^3/uL (1.7-8.2); BASOPHILS % (AUTO) 0.4 % (0-2); EOSINOPHILS % (AUTO) 1.4 % (0-6); HEMATOCRIT 29.8 % (36.0-47.0); HEMOGLOBIN 9.7 g/dL (12.0-15.5); LYMPHOCYTES % (AUTO) 6.3 % (13-45); MEAN CORPUSCULAR HEMOGLOBIN 27.8 pg (27.0-33.4); MEAN CORPUSCULAR HGB CONC 32.7 g/dL (32.0-36.0); MEAN CORPUSCULAR VOLUME 85 fl (80-97); MONOCYTES % (AUTO) 4.7 % (3-13); PLATELET COUNT 242 10^3/uL (150-450); RED BLOOD COUNT 3.51 10^6/uL (3.72-5.28); RED CELL DISTRIBUTION WIDTH 15.2 % (11.5-14.0); SEGMENTED NEUTROPHILS % (AUTO) 87.2 % (42-78); TOTAL CELLS COUNTED % (AUTO) 100 %; WHITE BLOOD COUNT 12.4 10^3/uL (4.0-10.5)
[2019-01-12 21:38] LABS: APPEARANCE,URINE CLOUDY; BILIRUBIN,URINE NEGATIVE (NEGATIVE); COLOR,URINE YELLOW; GLUCOSE, URINE NEGATIVE (NEGATIVE); KETONES,URINE NEGATIVE (NEGATIVE); LEUKOCYTE ESTERASE,URINE LARGE (NEGATIVE); NITRITE,URINE NEGATIVE (NEGATIVE); PROTEIN,URINE 30 mg/dL (NEGATIVE); UROBILINOGEN,URINE NEGATIVE mg/dL (<2.0)
--- NOTE | 2019-01-12 22:09 | ER Document Report ---
ED General - General Chief Complaint: Post Problem Stated Complaint: SORENESS,FEVER Time Seen by Provider: 01/12/19 20:54 Primary Care Provider: [facility] [Provider Group] - Follow up in 3-5 days LI PENN PA-C [Primary Care Provider] - Follow up as needed Mode of Arrival: Ambulatory Information source: Patient Notes: This 28-year-old female presents emergency department with feeling achy fever that started this morning. Recent vaginal of a little girl here at [facility] by victim witness administrator Renay flores January 09. Denies vomiting diarrhea. Patient reports she is breast-feeding. Reports breasts feel full but denies erythema. Patient reports urinary frequency increased since delivery. TRAVEL OUTSIDE OF THE [place] IN LAST 30 DAYS: No - HPI Onset: This morning Onset/Duration: Persistent Quality of pain: Achy Associated symptoms: Fever Exacerbated by: Denies Relieved by: Denies Similar symptoms previously: No Recently seen / treated by doctor: No - Related Data Allergies/Adverse Reactions: No Known Allergies Allergy (Verified 01/09/19 03:39) Past Medical History - General Information source: Patient Last Menstrual Period: - Social History Smoking Status: Unknown if Ever Smoked Cigarette use (# per day): No Frequency of alcohol use: None Drug Abuse: None Lives with: Family Family History: Reviewed & Not Pertinent Patient has suicidal ideation: No Patient has homicidal ideation: No Pulmonary Medical History: Reports: Hx Asthma Renal/ Medical History: Denies: Hx Peritoneal Dialysis Surgical Hx: Negative - Immunizations Hx Diphtheria, Pertussis, Tetanus Vaccination: Yes - 01/27/2012 Review of Systems - Review of Systems Notes: Review HPI for review of systems., All other systems negative Physical Exam - Vital signs Vitals: Temp Pulse Resp BP Pulse Ox 100.1 F 105 H 15 140/74 H 100 01/12/19 19:28 01/12/19 19:28 01/12/19 19:28 01/12/19 19:28 01/12/19 19:28 - Notes Notes: PHYSICAL EXAMINATION: GENERAL: Well-appearing and in no acute distress HEAD: Atraumatic, normocephalic. EYES: Pupils equal round , extraocular movements intact, sclera anicteric, conjunctiva are normal. ENT: nares patent, oropharynx clear without exudates. Moist mucous membranes. NECK: Normal range of motion, supple without lymphadenopathy LUNGS: CTAB and equal. No wheezes rales or rhonchi. HEART: Regular rate and rhythm without murmurs ABDOMEN: Soft, no tenderness. No guarding, no rebound EXTREMITIES: Normal range of motion, no pitting edema. No cyanosis. NEUROLOGICAL: Cranial nerves grossly intact. Normal sensory/motor exams. PSYCH: Normal mood, normal affect. SKIN: Warm, Dry, normal turgor, no rashes or lesions noted - Respiratory Respiratory status: No respiratory distress Chest status: Nontender Breath sounds: Normal Chest palpation: Normal - Skin Skin Temperature: Warm Skin Moisture: Dry Skin Color: Normal Skin irregularity: negative: Erythema Course - Re-evaluation Re-evalutation: 01/12/19 28-year-old female that presents with feeling achy fever that started this morning. Recent vaginal January 09. leukocytosis 12.4 with small shift. Leukocytes noted in urine. With large number of WBCs. Dr. Aguila Angeles [employer]IST contacted. Reviewed patient history reviewed results. Patient will be treated for UTI with iv fluids, gram Rocephin sent home with prescription of Keflex and instructed to follow-up [facility] for an appointment this week. Patient was instructed on the importance of monitor temperature push fluids take Tylenol as indicated. Dictation of this chart was performed using voice recognition software; therefore, there may be some unintended grammatical errors. 01/12/19 20:55 01/12/19 20:55 MCV 85 fl (80-97) 01/12/19 20:55 MCH 27.8 pg (27.0-33.4) 01/12/19 20:55 MCHC 32.7 g/dL (32.0-36.0) 01/12/19 20:55 RDW 15.2 % (11.5-14.0) H 01/12/19 20:55 Seg Neutrophils % 87.2 % (42-78) H 01/12/19 20:55 Lymphocytes % 6.3 % (13-45) L 01/12/19 20:55 Monocytes % 4.7 % (3-13) 01/12/19 20:55 Eosinophils % 1.4 % (0-6) 01/12/19 20:55 Basophils % 0.4 % (0-2) 01/12/19 20:55 Absolute Neutrophils 10.8 10^3/uL (1.7-8.2) H 01/12/19 20:55 Absolute Lymphocytes 0.8 10^3/uL (0.5-4.7) 01/12/19 20:55 Absolute Monocytes 0.6 10^3/uL (0.1-1.4) 01/12/19 20:55 Absolute Eosinophils 0.2 10^3/uL (0.0-0.6) 01/12/19 20:55 Absolute Basophils 0.0 10^3/uL (0.0-0.2) 01/12/19 20:55 Chloride 99 mmol/L (98-107) 01/12/19 20:55 Carbon Dioxide 25 mmol/L (22-30) 01/12/19 20:55 Anion Gap 10 (5-19) 01/12/19 20:55 Est GFR ( Amer) > 60 (>60) 01/12/19 20:55 Est GFR (Non-Af Amer) > 60 (>60) 01/12/19 20:55 Glucose 99 mg/dL (75-110) 01/12/19 20:55 Lactic Acid 1.2 mmol/L (0.7-2.1) 01/12/19 20:55 Calcium 9.2 mg/dL (8.4-10.2) 01/12/19 20:55 Total Bilirubin 0.4 mg/dL (0.2-1.3) 01/12/19 20:55 AST 41 U/L (14-36) H 01/12/19 20:55 Alkaline Phosphatase 171 U/L (38-126) H 01/12/19 20:55 Total Protein 7.2 g/dL (6.3-8.2) 01/12/19 20:55 Albumin 3.7 g/dL (3.5-5.0) 01/12/19 20:55 Urine Color YELLOW 01/12/19 20:15 Urine Appearance CLOUDY 01/12/19 20:15 Urine pH 9.0 (5.0-9.0) 01/12/19 20:15 Ur Specific [place] 1.010 01/12/19 20:15 Urine Protein 30 mg/dL (NEGATIVE) H 01/12/19 20:15 Urine Glucose (UA) NEGATIVE mg/dL (NEGATIVE) 01/12/19 20:15 Urine Ketones NEGATIVE mg/dL (NEGATIVE) 01/12/19 20:15 Urine Blood LARGE (NEGATIVE) H 01/12/19 20:15 Urine Nitrite NEGATIVE (NEGATIVE) 01/12/19 20:15 Ur Leukocyte Esterase LARGE (NEGATIVE) H 01/12/19 20:15 Urine WBC (Auto) >182 /HPF 01/12/19 20:15 Urine RBC (Auto) >182 /HPF 01/12/19 20:15 - Vital Signs Vital signs: Temp Pulse Resp BP Pulse Ox 100.2 F 105 H 23 H 109/68 100 01/12/19 22:39 01/12/19 19:28 01/12/19 23:01 01/12/19 23:01 01/12/19 23:01 - Laboratory Result Diagrams: 01/12/19 20:55 01/12/19 20:55 Laboratory results interpreted by me: 01/12/19 01/12/19 01/12/19 20:15 20:55 20:55 WBC 12.4 H RBC 3.51 L Hgb 9.7 L Hct 29.8 L RDW 15.2 H Seg Neutrophils % 87.2 H Lymphocytes % 6.3 L Absolute Neutrophils 10.8 H Sodium 133.5 L AST 41 H Alkaline Phosphatase 171 H Urine Protein 30 H Urine Blood LARGE H Ur Leukocyte Esterase LARGE H - Consults dr keith angeles Reason for consultation: 01/12/19 22:27 UTI, Antibiotics, fu Consulted provider: follow-up in office Discharge - Discharge Clinical Impression: Fever Qualifiers: Fever type: unspecified Qualified Code(s): R50.9 - Fever, unspecified UTI (urinary tract infection) Qualifiers: Urinary tract infection type: site unspecified Hematuria presence: with hematuria Qualified Code(s): N39.0 - Urinary tract infection, site not specified Condition: Stable Disposition: HOME, SELF-CARE Instructions: Cephalexin ([facility]), Intravenous (IV) Fluids ([facility]), Rocephin ([facility]), Urinary Tract Infection ([facility]) Additional Instructions: *You have been evaluated for Fever, UTI *Take medication as prescribed-you may continue to breast-feed *Push fluids *Monitor your temperature Tylenol as indicated *Follow up with [facility] Sunday for an appointment within the next few days *Return to ED for worsening condition, changes, needs Prescriptions: Cephalexin Monohydrate [Keflex 500 mg Capsule] 500 mg PO BID #14 capsule Referrals: LI PENN PA-C [Primary Care Provider] - Follow up as needed [facility] [Provider Group] - Follow up in 3-5 days
[2019-01-12] MEDS ORDERED: CEFTRIAXONE 1 GM/D5W RTU 1 GM/50 ML RTUPB IV ONE (22:13)
[2019-01-12 22:43] VITALS: BP 109/68
== END 2019-01-12 23:18 | disposition home or self-care (01) ==
LOC: ER 19:24
DX: O90.89 Other complications of the puerperium, not elsewhere classified (principal); N39.0 Urinary tract infection, site not specified; R50.9 Fever, unspecified; R35.0 Frequency of micturition; J45.909 Unspecified asthma, uncomplicated
CPT/HCPCS: 99283; 36415; 87040; 87086; 85025; 80053; 81001; 83605; J7030; J0696